=== PATIENT | female | born 1990 | race Caucasian/White ===

== ENCOUNTER 2016-08-18 09:45 | Emergency (ER) | payer OTHER ==
[~2016-08-18 09:45] MED LIST: AMOXICILLIN500 M1 PO; BACTRIM DS TABL1 TA1 PO; BACTRIM DS TABL1 TAB PO; BROMFED DM COU118 ML PO; CLARITIN10 M3 PO; FLEXERIL10 M1 PO; IBUPROFEN800 MG PO; MAXZIDE 75/50 T1 TAB PO; MOBIC15 MG PO; NAPROSYN500 MG PO; NAPROXEN PO; NO MEDICATIONS; PHENERGAN25 M1 PO; PHENTERMINE PO; PRILOSEC20 MG PO; TOPAMAX PO; TYLENOL #3 PO; ULTRAM PO
[2016-08-18 10:19] LABS: BASOPHIL# 0.1 X10e3 (0-0.3); BASOPHIL% 0.6 % (0-2.5); DIFF IND NO; EOSINOPHIL# 0.1 X10e3 (0-0.7); EOSINOPHIL% 0.6 % (0.0-7.0); HEMATOCRIT 40.4 % (35.0-45.0); HEMOGLOBIN 13.3 gm/dL (12.0-16.0); LYMPHOCYTE# 2.4 X10e3 (1.0-3.5); LYMPHOCYTE% 23.3 % (17.0-45.0); MEAN CELL VOLUME 88.4 FL (83-96); MEAN CORPUSCULAR HEMOGLOBIN 29.2 PG (28-34); MEAN CORPUSCULAR HGB CONC 33.1 g/dL (30-36); MEAN PLATELET VOLUME 8.6 FL (6.5-11.5); MONOCYTE# 0.6 X10e3 (0-1.0); MONOCYTE% 6.1 % (3.0-12.0); NEUTROPHIL# 7.2 X10e3 (1.5-7.1); NEUTROPHIL% 69.4 % (40-75); PLATELET COUNT 242 X10e3 (140-420); RED BLOOD COUNT 4.57 X10e (3.90-5.30); RED CELL DISTRIBUTION WIDTH 13.6 % (11.0-15.5); WHITE BLOOD COUNT 10.4 X10e3 (4.0-10.5)
[2016-08-18 10:40] LABS: URINE SOURCE CLEAN CATCH
[2016-08-18 10:42] LABS: URINE APPEARANCE CLEAR; URINE BILIRUBIN NEG (NEG); URINE BLOOD NEG (NEG); URINE COLOR YELLOW; URINE GLUCOSE NEG (NORM); URINE KETONE NEG (NEG); URINE LEUKOCYTE ESTERASE NEG (NEG); URINE NITRATE NEG (NEG); URINE PH 7.5 (5-8); URINE PROTEIN NEG (NEG); URINE UROBILINOGEN 0.2 MG/DL (NORM)
[2016-08-18 10:47] LABS: MICRO INDICATED? NO
[2016-08-20 11:29] LABS: CHLAMYDIA TRACH Not Detected (Not Detected); N GONOR Not Detected (Not Detected)
== END 2016-08-18 11:25 | disposition home or self-care (01) ==
LOC: SED 09:45
PROVIDERS: Physician Assistant
DX: N94.6 Dysmenorrhea, unspecified (principal); Z87.891 Personal history of nicotine dependence
CPT/HCPCS: 36415; 81003; 84703; 85025; 87491; 87591; 87808; 87905; 99284; J1885

== ENCOUNTER 2016-09-29 17:21 | Emergency (ER) | payer SELFPAY | END 2016-09-29 18:53 | disposition home or self-care (01) | LOC: SED 17:21 | DX: J20.9 Acute bronchitis, unspecified (principal); J06.9 Acute upper respiratory infection, unspecified; Z87.891 Personal history of nicotine dependence | CPT/HCPCS: 87651; 99283 ==